=== PATIENT | male | born 1995 | race Caucasian/White ===

== ENCOUNTER 2017-10-28 00:03 | Emergency (ER) | payer BC ==
[~2017-10-28] VITALS: Ht 188 cm; Wt 146.5 kg
[2017-10-28 00:20] VITALS: BP_SYST 158
--- NOTE | 2017-10-28 00:20 | NUR ---
Placed in room 04 . To gown for exam. Side rails up. Report given to GURDEEP Han.
--- NOTE | 2017-10-28 00:25 | NUR ---
Pt alert and oriented. Pt C/O of lower right back pain. Pt states pain 3/10. No signs of SOB or acute distress. Will continue to monitor.
--- NOTE | 2017-10-28 00:55 | NUR ---
ER MD CHVÁEZ AT BEDSIDE EXAMINING PATIENT.
[2017-10-28] MEDS ORDERED: CYCLOBENZAPRINE HCL 10 MG TABLET (FLEXERIL) PO ONE (01:15)
[2017-10-28] MEDS ORDERED: HYDROcodone/ACETAMIN 5-325 MG TAB (NORCO/ VICODIN) PO ONE (01:15)
[2017-10-28 01:50] VITALS: BP_SYST 140
--- NOTE | 2017-10-28 01:50 | NUR ---
Patient given written and verbal discharge instructions and verbalizes understanding. ER MD Snow discussed with patient the results and treatment provided. Patient in stable condition. ID arm band removed. Rx of [place], Flexeril and Ibprophen given. Patient educated on pain management and to follow up with PMD. Pain Scale 08/27. Opportunity for questions provided and answered. Medication side effect fact sheet provided. Addendum: 10/28/17 at 0203 by [email or web address] Pts is driving pt home.
== END 2017-10-28 01:50 | disposition home or self-care (01) ==
LOC: SED 00:03
DX: M54.6 Pain in thoracic spine (principal); R03.0 Elevated blood-pressure reading, without diagnosis of hypertension; Z90.89 Acquired absence of other organs
CPT/HCPCS: 99283